=== PATIENT | female | born 1995 | race Caucasian/White ===

== ENCOUNTER 2018-04-14 11:09 | Observation (INO) | payer OTHER ==
[~2018-04-14 11:09] MED LIST: Glycopyrrolate 0.2 MG/ML 5 ML SYRINGE ONE; Ondansetron HCl/PF 4 MG/2 ML Vial ONE; PHENYLEPHRINE-NS 100 MCG/ML 10 ML SYRINGE ONE; PROPOFOL 200 MG/20 ML VIAL ONE; Succinylcholine Chloride 20 MG/ML 10 ml SYRINGE FS ONE; ePHEDrine/0.9% NaCl/PF SYRINGE 50 mg/10 ml ONE
[2018-04-14] MEDS ORDERED: Ondansetron ODT 4 MG TAB ONE (11:24)
[2018-04-14 12:02] LABS: #Eosinphils 0.1 thou/uL (0.0-0.7); #Lymphocytes 1.7 thou/uL (1.20-3.40); #Monocytes 0.5 thou/uL (0.11-0.59); #Neutrophils 11.4 thou/uL (1.40-6.50); %Basophils 0.2 % (0.0-1.0); %Eosinophils 0.8 % (0.0-10.0); %Lymphocytes 12.6 % (28.0-48.0); %Monocytes 3.6 % (0.0-4.0); %Neutrophils 82.7 % (31.0-61.0); Hemoglobin 13.4 g/dL (12.0-16.0); Mean Corpuscular HGB CONC 34.3 g/dL (32.0-36.0); Mean Corpuscular Hemoglobin 31.2 pg (25.0-35.0); Mean Corpuscular Volume 91.1 fl (77.0-87.0); Mean Platelet Volume 8.6 fL (7.4-10.4); Platelet Count 213 thou/uL (130-400); RBC Distribution Width 11.5 % (11.5-14.5); Red Blood Cell (RBC) Count 4.29 mill/uL (4.00-5.20); White Blood Cell (WBC) Count 13.8 thou/uL (4.8-10.8)
[2018-04-14 12:17] LABS: ALT (SGPT) 7 U/L (8-55); AST (SGOT) 10 U/L (5-34); Albumin 3.7 g/dL (3.5-5.0); Alkaline Phosphatase 53 U/L (40-150); Anion Gap 11 mmol/L (10-20); BUN (Urea Nitrogen) 8 mg/dL (7.0-18.7); Bilirubin, Total 0.3 mg/dL (0.2-1.2); Calc. Creatinine Clearance 0 mL/min (70-130); Calcium 8.9 mg/dL (7.8-10.44); Carbon Dioxide 23 mmol/L (22-29); Chloride 105 mmol/L (98-107); Estimated GFR-MDRD Greater than 90; Globulin 2.8 g/dL (2.4-3.5); Glucose 109 mg/dL (70-105); Lipase 11 U/L (8-78); Potassium 3.6 mmol/L (3.5-5.1); Protein, Total 6.5 g/dL (6.0-8.3); Sodium 135 mmol/L (136-145)
[2018-04-14 12:45] LABS: Bilirubin Negative (Negative); Blood, Urine Negative (Negative); Clarity TURBID (Clear); Glucose, Urine (Dipstick) Negative (Negative); Leukocyte Trace (Negative); Nitrite Negative (Negative); Protein, Urine (Dipstick) Negative (Neg-Trace); Specific Gravity, Urine 1.021 (1.002-1.036); Urobilinogen 0.2 mg/dL (0.2-1.0); pH, Urine 7.5 (5.0-9.0)
[2018-04-14 12:47] LABS: Bacteria/HPF Rare-Few HPF (None Seen); Hyaline Casts/LPF 0-3 HYALINE CAST LPF (0-3 Hyaline); Pathc Cast-AUWi Flag 0.14 (0-2.49); RBC/HPF None Seen HPF (0-3); Squamous Epithelial 0-3 HPF (0-3)
--- NOTE | 2018-04-14 13:07 | ULT ---
LIMITED OBSTETRICAL ULTRASOUND: Date: 04-14-18 Comparison: None. History: 22-year-old female with pelvic pain for 8 hours. Technique: Multiplanar grayscale sonographic imaging of the gravid uterus obtained. FINDINGS: There is a single intrauterine gestation with a variable presentation and a heart rate of 140-141 júnior ts/minute. The placenta is located posteriorly. Cervical length is estimated at 3.3 cm. There are prominent curvilinear areas of decreased echogenicity along the superior and inferior yan ns of the placenta. There is no hypoechoic fluid or discrete fluid collection seen in these regions. No definite internal blood flow is seen within these subtle areas of decreased echogenicity at the ma rgins of the placenta. No retroplacental hematoma is seen. heart rate is 140-141 beats/minute. biometry: BPD 3.2 cm 16 weeks 0 days HC 11.7 cm 15 weeks 5 days AC 8.9 cm 15 weeks 1 day FL 1.6 cm 14 weeks 5 days Average age based on ultrasound is 15 weeks 2 days with estimated date of delivery on 10-04-18. IMPRESSION: Single live intrauterine gestation as detailed above. No retroplacental hematoma or definite evidence for placental abruption. Of note, there are conspicuous areas of decreased crescenteric echogenicity along the superior and inferior margins of the placenta. These may represent prominent marginal sinu s vessels. Placental separation is not fully excluded but is felt less likely. Close clinical follow up is thus advised. Small subchorionic hemorrhage is not excluded. Results discussed with Dr. Luis at 1220 p.m. 04-14-18. Code CR POS: [facility]
[2018-04-14] MEDS ORDERED: cefOXitin 2 GM in Sodium Chloride 0.9% 100 ML IVPB SCH (15:00)
--- NOTE | 2018-04-14 15:01 | MRI ---
MRI ABDOMEN AND PELVIS WITHOUT CONTRAST: HISTORY: A 22-year-old female (15 weeks ) with right lower quadrant pain and leukocytosis. FINDINGS: The appendix is mildly dilated with a small amount of adjacent periappendiceal fluid. Intrauterine is seen with a tiny amount of free fluid in the pelvis. Bone marrow signal is normal. The visualized portions of the liver, gallbladder, and kidneys are normal. Bone marrow sig nal is normal. IMPRESSION: The findings are suspicious for early appendicitis. The study was interpreted in consultation with Dr. Agustin Alfredo who concurs. Discussed over the telephone with ER physician, Dr. Luis, at 2:35 p.m. CODE CR POS: [facility]
[2018-04-14] MEDS ORDERED: Bupivacaine/Epinephrine 0.25% 30 ML VIAL ONE (17:26)
--- NOTE | 2018-04-14 18:18 | CON ---
DATE OF CONSULTATION: 04/14/2018 TIME OF SERVICE: 1530 hours. ADMITTING PHYSICIAN: Agustin Zabala M.D. CONSULTING PHYSICIAN: Rocky Sauceda M.D. REASON FOR ADMISSION: with appendicitis at 15 weeks gestation. HISTORY OF PRESENT ILLNESS: Ms. Mcdaniels is a 22-year-old 2, para 1 at 15 weeks gestation, wh o sees Dr. Jonnathan Arellano for her antepartum care. She presented to the emergency room with lower abdo ambar pain, nausea, vomiting, and had an MRI diagnostic for appendicitis. She is being admitted for laparoscopic appendectomy and consultation was made for a postoperative management. OB AND BATTERY RECHARGER HISTORY: x1, no history of dysplasia or STDs. Patient reports an uncomplicated pregn sheron. PAST MEDICAL HISTORY: Epilepsy as a child, seizure free for several years. PAST SURGICAL HISTORY: None. ALLERGIES: MORPHINE. Of note, the patient relates that she does not have difficulties with taking C ODEINE. MEDICATIONS: vitamins. SOCIAL HISTORY: Denies tobacco, alcohol, or drug abuse. FAMILY HISTORY: Noncontributory. REVIEW OF SYSTEMS: Noncontributory. PHYSICAL EXAMINATION: GENERAL: White female in no acute distress at this time. VITAL SIGNS: Blood pressure 118/72, temperature 98.7, respirations 18, and pulse 92. HEENT: Within normal limits. LUNGS: Clear to auscultation bilaterally. HEART: Regular rhythm. ABDOMEN: Has guarding in the right lower quadrant. No CVA tenderness noted, vulva is without lesion s. Vaginal exam deferred. EXTREMITIES: Without clubbing, cyanosis or edema. RADIOLOGY: ultrasound was performed in the emergency room, which revealed a composite gestatio nal age of 15 weeks 2 days with a cervical length of 3.3 cm and no abnormalities noted. Abdominal MR I was performed, which revealed a dilated appendix with periappendiceal fluid, no adnexal masses. LABORATORY STUDIES: Reveals a white count of 13.8 with a left shift 82, 3% neutrophils. Sodium of 1 35 and a negative urinalysis. IMPRESSION: Late first, early second trimester with findings consistent with acute appendi citis. PLAN: Agree with proceeding with surgical management. Patient's current gestational age is actually ideal gestational age for pelvic surgery. I discussed this with the patient and her mother. Dar cao no adverse outcomes to the from surgery or general anesthetic and available to provide d consultation and postoperative management if needed. Await surgical findings to decide with the pa tient can go home on an outpatient basis in the immediate postoperative period versus overnight admis tess.
[2018-04-14] MEDS ORDERED: Fentanyl 100 MCG/2 ML VIAL ONE (18:51)
[2018-04-14] MEDS ORDERED: Succinylcholine Chloride 20 MG/ML 10 ml SYRINGE FS ONE (18:52)
[2018-04-14] MEDS ORDERED: HYDROcodone/Acetaminophen 5/325 mg Tablet PO PRN ×2 (20:22)
[2018-04-14] MEDS ORDERED: Ondansetron HCl/PF 4 MG/2 ML Vial IVP PRN (20:43)
[2018-04-14 21:44] VITALS: BP 105/63; TEMP 97.7
--- NOTE | 2018-04-15 00:34 | HP ---
DATE OF ADMISSION: 04/14/2018 CHIEF COMPLAINT: Right lower quadrant abdominal pain, 15 weeks' . HISTORY OF PRESENT ILLNESS: Patient is a 22-year-old white female. She is 15 weeks' with h er second child. She had onset of lower abdominal pain about 3:00 this morning. It migrated to the right side, where it persists. She did have nausea and vomiting associated with this. She presented to the emergency room, where she underwent evaluation revealing leukocytosis of 13.8. MRI was subse quently obtained revealing findings consistent with early appendicitis. I am consulted for further m anagement. She has been seen by the hospital by student. PAST MEDICAL HISTORY: Unremarkable. PAST SURGICAL HISTORY: None. MEDICATIONS: None. ALLERGIES: No known drug allergies. PERSONAL/SOCIAL HISTORY: She is engaged. She has an 8-month-old child and is 15 weeks' wit h her second, which is a girl. She lives in [place]. She recently was working, but she no longe r is. She lives with her boyfriend/fiance. REVIEW OF SYSTEMS: Otherwise, unremarkable. FAMILY HISTORY: Noncontributory. PHYSICAL EXAMINATION: VITAL SIGNS: She is afebrile. Vital signs within normal limits. GENERAL: She is well-developed, well-nourished, pleasant white female in no acute distress, but she is alert and oriented x3. HEAD, EYES, EARS, NOSE, THROAT : Unremarkable. NECK: Supple, without mass or tenderness. LUNGS: Clear to auscultation. CARDIAC: Regular rate and rhythm without murmur. ABDOMEN: Soft. She has focal tenderness with guarding in the right lower quadrant. Bowel sounds ar e present and normoactive. EXTREMITIES: Unremarkable. ASSESSMENT: Patient with acute appendicitis during her . PLAN: Laparoscopic appendectomy. I have had a lengthy conversation with the patient and her family regarding the surgery and risks both to her and her baby. I certainly recommend proceeding with lapa roscopic appendectomy. She understands and agrees to proceed at this time.
--- NOTE | 2018-04-15 06:07 | OP ---
DATE OF PROCEDURE: 04/14/2018 PREOPERATIVE DIAGNOSES: Acute appendicitis, 15 weeks gestation. POSTOPERATIVE DIAGNOSES: Acute appendicitis, 15 weeks gestation. OPERATION PERFORMED: Laparoscopic appendectomy. SURGEON: Dr. Agustin Zabala ANESTHESIA: General endotracheal. INDICATIONS: The patient is a 22-year-old white female. She is 15 weeks with her second ch ild. She developed lower abdominal and right lower quadrant pain for which she presented to the [facility] room. She had leukocytosis and MRI evidence of early appendicitis. She is taken to the operat ing room at this time for a laparoscopic appendectomy. PROCEDURE IN DETAIL: Informed consent was obtained. The patient was taken to the operating where ge neral endotracheal anesthesia obtained with the patient in supine position. Abdomen was prepped with ChloraPrep and draped in sterile fashion. Local anesthetic was infiltrated and 5 mm supraumbilical incision was created through which a Veress needle was passed in peritoneal cavity. Pneumoperitoneum established using carbon dioxide up to a pressure of 15 mmHg. A 5 mm trocar port was then passed in this same incision. Laparoscopic camera was passed through this port. I first identified the gravi d uterus and its location. The bowel contents mobilized easily away from the pelvis with little T[place] position. I then selected through this from either 2 ports. A 5 mm incision was created i n the left lateral abdomen and another 5 mm incision in the left infraumbilical midline. I then trad ed out the 5 mm port in the supraumbilical area for a 12 mm port. Attention was then turned to the appendix. This was clearly inflamed and indurated, but appeared to be early appendicitis. There was certainly no perforation and no real separation. The mesoappendix was grasped and taken down using electrocautery. The base of the appendix was skeletonized. It was divided at its base between PDS Endoloops. The appendiceal stump was cauterized. The appendix was p laced in specimen retrieval sac and removed through the 12 mm port. Fascia was closed with 0 Vicryl suture using a GraNee needle. I inspected the remainder of the abdominal contents. The small bowel was run retrograde for 100 cm w ithout abnormal finding. The omentum was nonadherent to any other structures. There was minimal deondre ar peritoneal fluid present. I did not attempt to examine the pelvis so as to avoid ever touching th e uterus. The left adnexa were clearly visualized, but not the right. All ports and instruments wer e removed under direct vision. Pneumoperitoneum was carefully evacuated. Quarter percent Marcaine w ith epinephrine was infiltrated at each port site. Skin edges approximate 4-0 Monocryl subcuticular suture. Dermabond was placed externally. There were no complications. The patient tolerated the pr ocedure well and was taken to recovery in stable condition.
== END 2018-04-14 22:55 | disposition home or self-care (01) ==
LOC: ERS 11:09 → SURG B 16:49
PROVIDERS: ADMIT Specialist; ATTEND Specialist
PROC: 0DTJ4ZZ Resection of Appendix, Percutaneous Endoscopic Approach (ICD-10-PCS; principal; 2018-04-14)
DX: O99.612 Diseases of the digestive system complicating pregnancy, second trimester (principal); K35.80 Unspecified acute appendicitis; Z3A.15 15 weeks gestation of pregnancy; Z88.5 Allergy status to narcotic agent
CPT/HCPCS: 74181; 76815; 80053; 81003; 81015; 83690; 85025; 88304; 96361; 96365; J0694; J2405; J2704; J3010; J7050; Q0162

== ENCOUNTER 2018-09-03 23:50 | Inpatient (IN) | payer OTHER ==
[~2018-09-03 23:50] MED LIST changes: +Bupivacaine 0.25% 10 ML VIAL ONE; -Glycopyrrolate 0.2 MG/ML 5 ML SYRINGE ONE; -Ondansetron HCl/PF 4 MG/2 ML Vial ONE; -PHENYLEPHRINE-NS 100 MCG/ML 10 ML SYRINGE ONE; -PROPOFOL 200 MG/20 ML VIAL ONE; -Succinylcholine Chloride 20 MG/ML 10 ml SYRINGE FS ONE; -ePHEDrine/0.9% NaCl/PF SYRINGE 50 mg/10 ml ONE
[2018-09-04 00:38] VITALS: BMI 26.4
[2018-09-04] MEDS ORDERED: Betamet Acet/Betamet Na Ph 30 MG/5 ML VIAL IM SCH (01:30)
[2018-09-04] MEDS ORDERED: Lactated Ringer's 1,000 ML IV SCH (02:30)
[2018-09-04] MEDS ORDERED: Lidocaine 1% (PF) 30 ML VIAL SC PRN (02:30)
[2018-09-04] MEDS ORDERED: Ondansetron PF 4 MG/2 ML Vial IVP PRN ×3 (02:30→18:08)
[2018-09-04] MEDS ORDERED: NS / Oxytocin 40 units/1000ml 1,000 ML IV PRN (02:30)
[2018-09-04] MEDS ORDERED: Penicillin G Potassium 5 MILL.UNITS in Sodium Chloride 0.9% 100 ML IVPB SCH (02:45)
[2018-09-04] MEDS: Lactated Ringer's 1,000 ML IV SCH ×3 (03:15→20:41)
[2018-09-04] MEDS: Ampicillin 2 GM in Sodium Chloride 0.9% 100 ML IVPB SCH ×3 (03:52→16:10)
[2018-09-04 04:06] LABS: Hemoglobin 12.2 g/dL (12.0-16.0); Mean Corpuscular HGB CONC 33.3 g/dL (32.0-36.0); Mean Corpuscular Hemoglobin 30.6 pg (27.0-31.0); Mean Corpuscular Volume 91.9 fL (78.0-98.0); Mean Platelet Volume 8.9 fL (7.4-10.4); Platelet Count 255 thou/uL (130-400); RBC Distribution Width 11.8 % (11.5-14.5); Red Blood Cell (RBC) Count 3.97 mill/uL (4.20-5.40); White Blood Cell (WBC) Count 14.3 thou/uL (4.8-10.8)
[2018-09-04 04:43] LABS: HBSAg Index 0.21 S/CO (0-0.99); Hep B Surf Ag Non-Reactive S/CO (NonReactive); Syphilis Antibody Nonreactive (Nonreactive); Syphilis Antibody Index 0.04 S/CO (<1.00 Non-Reactive)
[2018-09-04] MEDS ORDERED: Fentanyl 4 mcg/Bup 0.1% Cadd 100 ML ONE ×2 (07:14→15:02)
[2018-09-04] MEDS ORDERED: diphenhydrAMINE 50 MG/ML VIAL IVP PRN (07:58)
[2018-09-04] MEDS ORDERED: Acetaminophen 325 MG TAB PO PRN (07:58)
[2018-09-04] MEDS ORDERED: Lactated Ringer's 500 ML IV PRN (07:58)
[2018-09-04] MEDS ORDERED: Promethazine HCl 25 MG/ML VIAL IM PRN (07:58)
[2018-09-04] MEDS ORDERED: Naloxone HCl 0.4 mg/ml Vial IVP PRN ×2 (07:58)
[2018-09-04] MEDS ORDERED: ePHEDrine/0.9% NaCl/PF SYRINGE 50 mg/10 ml SLOW IVP PRN (07:58)
[2018-09-04] MEDS ORDERED: Eucerin (Mineral Oil/Petrolatum,White) 30 gm Jar TOP PRN (07:58)
[2018-09-04] MEDS ORDERED: Communication Order-Pharmacy FS SCH (08:00)
[2018-09-04] MEDS ORDERED: Fentanyl 4 mcg/Bupivacaine 0.1% Cassette 100 ML EPIDURAL SCH (08:00)
[2018-09-04] MEDS ORDERED: Penicillin G Potassium 5 MILL.UNITS VIAL ONE (08:20)
[2018-09-04] MEDS: Penicillin G 2.5 MILL.units 2.5 MILL.UNITS in Premix Bag 1 BAG IVPB SCH ×4 (12:08→20:41)
[2018-09-04] MEDS ORDERED: NS w/ Oxytocin 10 units 500 ML ONE (15:15)
[2018-09-04] MEDS ORDERED: NS w/ Oxytocin 10 units 500 ML IVPB SCH (15:30)
[2018-09-04] MEDS ORDERED: Lanolin Ointment 7 GM TUBE TOP PRN (18:08)
[2018-09-04] MEDS ORDERED: Bisacodyl 10 MG SUPP PR PRN (18:08)
[2018-09-04] MEDS ORDERED: Zolpidem Tartrate 5 MG TAB PO PRN ×2 (18:08→18:34)
[2018-09-04] MEDS ORDERED: diphenhydrAMINE 25 MG CAP PO PRN (18:08)
[2018-09-04] MEDS ORDERED: Benzocaine/Menthol 20-0.5% 60 ML CAN TOP PRN (18:08)
[2018-09-04] MEDS ORDERED: Acetaminophen/Codeine 30-300mg Tablet PO PRN ×4 (18:08→18:33)
[2018-09-04] MEDS ORDERED: Preparation H Ointment 28 GM TUBE PR PRN (18:08)
[2018-09-04] MEDS ORDERED: Milk Of Magnesia 30 ML UDCUP PO PRN (18:08)
[2018-09-04] MEDS ORDERED: NS / Oxytocin 40 units/1000ml 1,000 ML IV SCH (18:15)
[2018-09-04] MEDS: Ibuprofen 800 MG TAB PO SCH (22:01)
[2018-09-04] MEDS: Docusate Calcium (SURFAK) 240 MG CAP PO SCH (22:02)
[2018-09-05] MEDS: Ibuprofen 800 MG TAB PO SCH ×3 (05:10→22:15)
[2018-09-05] MEDS: Ferrous Sulfate 325 MG TAB PO SCH ×2 (07:28→15:13)
[2018-09-05] MEDS: Prenatal Vitamin 1 TAB PO SCH (08:59)
[2018-09-05] MEDS: Docusate Calcium (SURFAK) 240 MG CAP PO SCH ×2 (08:59→22:15)
[2018-09-05] MEDS ORDERED: Adacel (T-DAP) 0.5 ML VIAL IM ONE (09:00)
[2018-09-06] MEDS: Ibuprofen 800 MG TAB PO SCH ×2 (05:54→13:50)
[2018-09-06] MEDS: Ferrous Sulfate 325 MG TAB PO SCH (08:50)
[2018-09-06] MEDS: Docusate Calcium (SURFAK) 240 MG CAP PO SCH (08:51)
[2018-09-06] MEDS: Prenatal Vitamin 1 TAB PO SCH (08:51)
[2018-09-06 11:50] VITALS: BP 116/57; TEMP 98.1
== END 2018-09-06 14:00 | disposition home or self-care (01) | DRG 806 ==
LOC: L&D/OP 23:50 → L&D 09-04 02:32 → 3SW 09-04 20:17
PROVIDERS: ADMIT Obstetrics & Gynecology; ATTEND Obstetrics & Gynecology
PROC: 10E0XZZ Delivery of Products of Conception, External Approach (ICD-10-PCS; principal; 2018-09-04)
PROC: 10907ZC Drainage of Amniotic Fluid, Therapeutic from Products of Conception, Via Natural or Artificial Opening (ICD-10-PCS; 2018-09-04)
DX: O60.14X0 Preterm labor third trimester with preterm delivery third trimester, not applicable or unspecified (principal); O98.82 Other maternal infectious and parasitic diseases complicating childbirth; Z37.0 Single live birth; Z3A.36 36 weeks gestation of pregnancy; B95.1 Streptococcus, group B, as the cause of diseases classified elsewhere
CPT/HCPCS: 51702; 85027; 86780; 86850; 86900; 86901; 87340; 90471; 90686; 99285; G0008; J0290; J0702; J2001; J2540; J7050; S0020

== ENCOUNTER 2020-08-02 10:32 | Emergency (ER) | payer OTHER ==
--- NOTE | 2020-08-02 10:56 | RAD ---
RADIOGRAPH CHEST 2 VIEWS: DATE: 08/02/2020 HISTORY: 24-year-old female with chest pain and palpitations FINDINGS: The lungs are clear. The cardiomediastinal silhouette and hilar shadows appear normal. There is no pl eural effusion or pneumothorax. No osseous abnormality is identified. IMPRESSION: Normal
[2020-08-02 11:32] LABS: #Eosinphils 0.1 thou/uL (0.0-0.7); #Lymphocytes 1.8 thou/uL (1.20-3.40); #Monocytes 0.6 thou/uL (0.11-0.59); #Neutrophils 7.1 thou/uL (1.40-6.50); %Basophils 0.4 % (0.0-1.0); %Eosinophils 0.7 % (0.0-10.0); %Lymphocytes 18.5 % (21.0-51.0); %Monocytes 6.4 % (0.0-10.0); Hemoglobin 15.3 g/dL (12.0-16.0); Mean Corpuscular Hemoglobin 31.2 pg (27.0-31.0); Mean Corpuscular Volume 94.4 fL (78.0-98.0); Platelet Count 263 thou/uL (130-400); White Blood Cell (WBC) Count 9.5 thou/uL (4.8-10.8)
[2020-08-02 11:45] LABS: BHCG - Serum Negative (NEGATIVE); Pregs Control Background? CLEAR/WHITE (CLR/WHITE); Pregs Control Bar Appear? YES (CONTROL BAR)
[2020-08-02 12:00] LABS: ALT (SGPT) 8 U/L (8-55); AST (SGOT) 12 U/L (5-34); Albumin 4.2 g/dL (3.5-5.0); Alkaline Phosphatase 59 U/L (40-110); Anion Gap 13 mmol/L (10-20); BUN (Urea Nitrogen) 10 mg/dL (7.0-18.7); Bilirubin, Total 0.4 mg/dL (0.2-1.2); Calc. Creatinine Clearance 0 mL/min (70-130); Calcium 8.8 mg/dL (7.8-10.44); Carbon Dioxide 24 mmol/L (22-29); Chloride 104 mmol/L (98-107); Estimated GFR-MDRD 81; Globulin 2.9 g/dL (2.4-3.5); Glucose 94 mg/dL (70-105); Magnesium 1.8 mg/dL (1.6-2.6); Potassium 3.6 mmol/L (3.5-5.1); Protein, Total 7.1 g/dL (6.0-8.3); Sodium 137 mmol/L (136-145)
[2020-08-02 12:14] LABS: Thyroid Stimulating Hormone 0.8052 uIU/mL (0.35-4.94)
== END 2020-08-02 12:50 | disposition home or self-care (01) ==
LOC: ERS 10:32
DX: R00.2 Palpitations (principal); G40.909 Epilepsy, unspecified, not intractable, without status epilepticus; F41.9 Anxiety disorder, unspecified
CPT/HCPCS: 71046; 80053; 83735; 84443; 84484; 84703; 85025; 85379; 93005; 96360

== ENCOUNTER 2020-09-23 20:18 | Emergency (ER) | payer OTHER | END 2020-09-23 21:21 | disposition home or self-care (01) | LOC: ERS 20:18 | DX: Z02.83 Encounter for blood-alcohol and blood-drug test (principal) | CPT/HCPCS: 36415; 80307; 99283 ==